=== PATIENT | female | born 1995 | race Caucasian/White ===

== ENCOUNTER 2017-04-26 20:30 | Emergency (ER) | payer BC ==
[~2017-04-26] VITALS: Ht 165.1 cm; Wt 49.0 kg
--- NOTE | ~2017-04-26 | CT4 ---
[facility] A Service of [facility] RADIOLOGY TEXT RESULTS PATIENT: IVETTE WATT LOCATION: SED : [birth year] UNIT #: [id number] AGE: [address]: Aba Echevarria MD SEX: F ORDER DR: [id number] [place] [id number] E MR#: [id number] Acc #: [id number] NAME: IVETTE WATT : 1995 SEX: F STUDY DATE/TIME: 04/26/2017 22:50 UNIT: SED ROOM: STUDY DESCRIPTION: CT Abd and Pelv Wo Cont Attending Physician: Aba Echevarria M.D. Ordering Physician: Aba Echevarria M.D. Primary Care Physician: Primary Care Physician No MEDICAL IMAGING REPORT This report is preliminary unless electronic signature is present. EXAM CT abdomen and pelvis, noncontrast, 04/26/2017 HISTORY 21-year-old female in the ED complaining of gross hematuria today. She notes some urinary incontinence. TECHNIQUE CT examination of the abdomen and pelvis without oral or IV contrast using kidney stone protocol, as ordered. Abdomen Findings Both kidneys, both ureters and the urinary bladder are normal in noncontrast CT appearance. The bladder is decompressed with a Finn catheter. No visible nephrolithiasis or evidence of urinary obstruction. Liver, pancreas and spleen are within normal limits. No gallbladder distension or bile duct dilatation. Small bowel and colon are normal in caliber and appearance, as imaged. The appendix is normal where seen. Pelvis Findings Uterus, ovaries and rectum are within normal limits. IUD within the endometrial cavity of the uterus. No inguinal hernia. Limited lung base images show no active disease in the lower chest. IMPRESSION Negative noncontrast CT examination of the abdomen and pelvis. Dictated by... Oleksandr Flor M.D. [facility] A Service of [facility] RADIOLOGY TEXT RESULTS PATIENT: IVETTE WATT LOCATION: SED : 96 UNIT #: [id number] AGE: [address]: Aba Echevarria MD SEX: F ORDER DR: THIS IS AN ELECTRONICALLY VERIFIED REPORT Oleksandr Flor M.D. at 04/27/2017 9:45 PM BHAVANA/emiliana TD: 04/27/2017 10:00 JOB #: [id number] MEDICAL IMAGING REPORT Page 1 of 1
[~2017-04-26 20:30] MED LIST: FLEXERIL PO; VICODIN 5/500 T1 TAB PO
[2017-04-26] MEDS ORDERED: ZOLOFT100 MG PO (20:38)
[2017-04-26 21:06] LABS: URINE SOURCE CLEAN CATCH
[2017-04-26 21:09] LABS: MICRO INDICATED? YES; URINE APPEARANCE TURBID; URINE BILIRUBIN NEG (NEG); URINE BLOOD 3+ (NEG); URINE COLOR RED; URINE GLUCOSE NEG (NORM); URINE KETONE 1+ (NEG); URINE LEUKOCYTE ESTERASE 2+ (NEG); URINE NITRATE POS (NEG); URINE PH 6.5 (5-8); URINE PROTEIN 3+ (NEG); URINE SPECIFIC GRAVITY 1.025 (1.003-1.035)
[2017-04-26 21:10] LABS: BASOPHIL# 0.1 X10e3 (0-0.3); BASOPHIL% 0.3 % (0-2.5); EOSINOPHIL# 0.3 X10e3 (0-0.7); EOSINOPHIL% 1.7 % (0.0-7.0); HEMATOCRIT 44.7 % (35.0-45.0); HEMOGLOBIN 15.3 gm/dL (12.0-16.0); LYMPHOCYTE# 2.9 X10e3 (1.0-3.5); LYMPHOCYTE% 17.4 % (17.0-45.0); MEAN CELL VOLUME 93.7 FL (83-96); MEAN CORPUSCULAR HGB CONC 34.1 g/dL (30-36); MEAN PLATELET VOLUME 8.4 FL (6.5-11.5); MONOCYTE# 1.3 X10e3 (0-1.0); MONOCYTE% 7.7 % (3.0-12.0); NEUTROPHIL% 72.9 % (40-75); PLATELET COUNT 231 X10e3 (140-420); RED BLOOD COUNT 4.77 X10e (3.90-5.30); WHITE BLOOD COUNT 16.4 X10e3 (4.0-10.5)
[2017-04-26 21:11] LABS: DIFF IND NO
[2017-04-26 21:12] LABS: URINE BACTERIA 1+ (NEG); URINE RBC 100-200 /[HPF] (0-2); URINE WBC 25-50 /[HPF] (0-5)
[2017-04-26 21:13] LABS: URINE SQUAMOUS EPITHELIAL CELL OCCAS /[HPF]
[2017-04-26 21:27] LABS: ALBUMIN SERUM 5.1 g/dL (3.5-5.0); BILIRUBIN,TOTAL 0.6 mg/dL (0.2-2.0); CALCIUM SERUM 9.5 mg/dL (8.4-10.2); CREATININE SERUM 0.8 mg/dL (0.6-1.4); GLOM FILT RATE Estimated 106.2 mL/min (>60); POTASSIUM 3.4 mmol/L (3.5-5.1)
[2017-04-26 21:50] LABS: URINE SOURCE CATH
[2017-04-26 21:52] LABS: URINE APPEARANCE TURBID; URINE BLOOD 3+ (NEG); URINE COLOR DK YELLOW; URINE GLUCOSE NEG (NORM); URINE KETONE 1+ (NEG); URINE LEUKOCYTE ESTERASE 3+ (NEG); URINE NITRATE POS (NEG); URINE PH 6.5 (5-8); URINE PROTEIN 2+ (NEG); URINE SPECIFIC GRAVITY 1.025 (1.003-1.035)
[2017-04-26 21:55] LABS: MICRO INDICATED? YES; URINE BILIRUBIN NEG (NEG)
[2017-04-26 21:57] LABS: CULTURE INDICATED? YES; URINE BACTERIA 1+ (NEG); URINE RBC 100-200 /[HPF] (0-2); URINE SQUAMOUS EPITHELIAL CELL FEW /[HPF]; URINE TRANSITIONAL EPI CELLS FEW /[HPF]
[2017-04-29 07:53] LABS: CHLAMYDIA TRACH Not Detected (Not Detected); N GONOR Not Detected (Not Detected)
== END 2017-04-27 00:07 | disposition home or self-care (01) ==
LOC: SED 20:30
PROVIDERS: Emergency Medicine
DX: N39.0 Urinary tract infection, site not specified (principal); R31.9 Hematuria, unspecified; F17.200 Nicotine dependence, unspecified, uncomplicated
CPT/HCPCS: 51702; 74176; 80053; 81003; 84703; 85025; 87086; 87186; 87491; 87591; 87808; 87905; 99284; J0696